=== PATIENT | female | born 1975 | race Caucasian/White ===

== ENCOUNTER 2020-01-26 17:26 | Emergency (ER) | payer MEDICAID, OTHER ==
[~2020-01-26] VITALS: Ht 175.3 cm; Wt 81.6 kg
[2020-01-26 18:21] VITALS: BP 155/95
== END 2020-01-26 20:24 | disposition home or self-care (01) ==
LOC: ER 17:26
DX: R25.2 Cramp and spasm (principal); M25.472 Effusion, left ankle; M79.662 Pain in left lower leg
CPT/HCPCS: 93971